=== PATIENT | male | born 1965 | race Hispanic/Latino ===

== ENCOUNTER 2023-01-09 17:31 | Inpatient (IN) | payer OTHER ==
[2023-01-09] MEDS ORDERED: Nitroglycerin 0.4 MG TAB 1 EACH ONE (18:11)
[2023-01-09 18:12] LABS: #Monocytes 0.4 thou/uL (0.11-0.59); %Basophils 0.3 % (0.0-1.0); %Eosinophils 0.4 % (0.0-10.0); %Lymphocytes 19.8 % (21.0-51.0); %Monocytes 6.4 % (0.0-10.0); %Neutrophils 72.7 % (42.0-75.0); Hematocrit 40.6 % (42.0-52.0); Hemoglobin 12.8 g/dL (14.0-18.0); Mean Corpuscular HGB CONC 31.5 g/dL (32.0-36.0); Mean Corpuscular Hemoglobin 28.3 pg (27.0-31.0); Mean Corpuscular Volume 89.6 fl (78.0-98.0); Mean Platelet Volume 14.4 fL (7.4-10.4); Platelet Count 126 10x3/uL (130-400); RBC Distribution Width 14.8 % (11.5-14.5); Red Blood Cell (RBC) Count 4.53 mill/uL (4.70-6.10); White Blood Cell (WBC) Count 6.9 10x3/uL (4.8-10.8)
[2023-01-09 18:35] LABS: ALT (SGPT) 14 U/L (8-55); AST (SGOT) 14 U/L (5-34); Albumin 4.6 g/dL (3.5-5.0); Alkaline Phosphatase 77 U/L (40-110); Anion Gap 16 mmol/L (10-20); BUN (Urea Nitrogen) 26 mg/dL (8.4-25.7); Bilirubin, Total 0.2 mg/dL (0.2-1.2); Calc. Creatinine Clearance 0 mL/min (70-130); Calcium 9.3 mg/dL (7.8-10.44); Carbon Dioxide 23 mmol/L (22-29); Chloride 104 mmol/L (98-107); Estimated GFR 48; Globulin 2.1 g/dL (2.4-3.5); Potassium 5.5 mmol/L (3.5-5.1); Protein, Total 6.7 g/dL (6.0-8.3); Sodium 137 mmol/L (136-145)
[2023-01-09 18:38] LABS: Glucose 580 mg/dL (70-105)
[2023-01-09 18:42] LABS: Troponin I 1.219 ng/mL (< 0.028)
[2023-01-09] MEDS ORDERED: Morphine 4 MG/ML VIAL ONE ×2 (19:32→20:17)
[2023-01-09] MEDS ORDERED: Insulin Regular 300 UNITS/3 ML VIAL ONE (20:32)
[2023-01-09] MEDS ORDERED: fentaNYL 50 mcg/mL 1 mL Vial ONE (20:54)
[2023-01-09] MEDS ORDERED: Lidocaine 1% (PF) 30 ML VIAL ONE (20:55)
[2023-01-09] MEDS ORDERED: Heparin 10,000 UNITS/ 10 ML VIAL ONE (20:55)
[2023-01-09] MEDS ORDERED: Nitroglycerin 50 MG/250 ML BOT 0 ML ONE (20:55)
[2023-01-09] MEDS ORDERED: Midazolam HCl 2 mg/2 ml Vial ONE (20:55)
[2023-01-09] MEDS ORDERED: Acetaminophen 325 MG TAB PO PRN (21:04)
[2023-01-09] MEDS ORDERED: Dextrose 5% in Water 1,000 ML IV PRN (21:07)
[2023-01-09] MEDS ORDERED: HumaLOG 300 UNITS/3 ML VIAL SC PRN (21:07)
[2023-01-09] MEDS ORDERED: Dextrose 50% Abboject 50 ML SYRINGE SLOW IVP PRN (21:07)
[2023-01-09] MEDS ORDERED: Glucagon 1 MG/ML KIT IM PRN (21:07)
[2023-01-09] MEDS ORDERED: Ondansetron PF 4 MG/2 ML Vial ONE (21:37)
[2023-01-09] MEDS ORDERED: Furosemide 40 MG/4 ML VIAL ONE (21:42)
[2023-01-09] MEDS ORDERED: Morphine 4 MG/ML VIAL SLOW IVP PRN (22:11)
[2023-01-09] MEDS ORDERED: Heparin 10,000 UNITS/ 10 ML VIAL SLOW IVP SCH (22:15)
[2023-01-09] MEDS ORDERED: Heparin 25,000 units/D5W 500 ML IVPB SCH (22:15)
[2023-01-09 23:03] LABS: Troponin I 3.374 ng/mL (< 0.028)
[2023-01-09 23:11] LABS: Anion Gap 15 mmol/L (10-20); BUN (Urea Nitrogen) 23 mg/dL (8.4-25.7); Calc. Creatinine Clearance 0 mL/min (70-130); Calcium 8.5 mg/dL (7.8-10.44); Carbon Dioxide 21 mmol/L (22-29); Chloride 111 mmol/L (98-107); Estimated GFR 58; Glucose 296 mg/dL (70-105); Potassium 3.9 mmol/L (3.5-5.1); Sodium 143 mmol/L (136-145)
[2023-01-09 23:20] VITALS: BMI 28.1
[2023-01-10 00:24] LABS: Troponin I 8.734 ng/mL (< 0.028)
[2023-01-10] MEDS: Ondansetron PF 4 MG/2 ML Vial IVP PRN ×3 (01:05→11:47)
[2023-01-10 02:00] LABS: Hematocrit 38.3 % (42.0-52.0); Mean Corpuscular HGB CONC 31.3 g/dL (32.0-36.0); Mean Corpuscular Hemoglobin 28.4 pg (27.0-31.0); Mean Corpuscular Volume 90.5 fl (78.0-98.0); Platelet Count 116 10x3/uL (130-400); Red Blood Cell (RBC) Count 4.23 mill/uL (4.70-6.10); White Blood Cell (WBC) Count 10.8 10x3/uL (4.8-10.8)
[2023-01-10 02:01] LABS: Delete Auto Diff?? YES; Manual Diff?? YES
[2023-01-10 02:28] LABS: Band 1 % (5-11); Burr Cells SLIGHT = 2-5 cells HPF (0-1); CellaVision Operator ID lab.abc; Large Platelets 7.8 % (0-5); Lymphocytes 12 % (21-51); Monocytes 5 % (0-10); Neutrophil 82 % (42-75); Platelet Adequacy Comment Platelets Decreased; Smudge Cells 8.8 %; Total Cell Count 102
[2023-01-10 02:37] LABS: Hemoglobin A1c 8.5 % (4.0-6.0)
[2023-01-10 02:38] LABS: Anion Gap 19 mmol/L (10-20); BUN (Urea Nitrogen) 26 mg/dL (8.4-25.7); Calc. Creatinine Clearance 57 mL/min (70-130); Calcium 8.6 mg/dL (7.8-10.44); Carbon Dioxide 17 mmol/L (22-29); Cardiac Risk 5.3 (Less than 4.5); Chloride 110 mmol/L (98-107); Cholesterol 149 mg/dl (< 200 Desired); Estimated GFR 47; Glucose 364 mg/dL (70-105); HDL Cholesterol 28 mg/dL (>60 Neg Risk); LDL Cholesterol, Calculated 83 mg/dL; Potassium 5.6 mmol/L (3.5-5.1); Sodium 140 mmol/L (136-145); Triglycerides 189 mg/dL (Less than 150)
[2023-01-10] MEDS ORDERED: NOREPINEPHRINE 8 MG/250 ML-D5W 250 ML ONE (02:44)
[2023-01-10 02:46] LABS: Troponin I 15.933 ng/mL (< 0.028)
[2023-01-10] MEDS ORDERED: Ondansetron PF 4 MG/2 ML Vial IVP SCH ×2 (03:00→07:45)
[2023-01-10] MEDS: NOREPINEPHRINE 8 MG/250 ML-D5W 250 ML IVPB SCH ×2 (03:05→11:09)
[2023-01-10] MEDS: HumaLOG 300 UNITS/3 ML VIAL SC PRN ×2 (04:18→06:37)
[2023-01-10] MEDS: DOBUTamine 500 mg/250 ml 250 ML IVPB SCH ×2 (04:42→11:09)
[2023-01-10] MEDS ORDERED: Sodium Bicarb 50 MEQ/50 ML VIAL ONE ×3 (04:47→07:06)
[2023-01-10] MEDS ORDERED: Sodium Bicarb 50 MEQ/50 ML VIAL IVP SCH ×2 (04:50→07:00)
[2023-01-10 05:15] LABS: Magnesium 1.9 mg/dL (1.6-2.6)
[2023-01-10] MEDS ORDERED: Sodium Chloride 0.9% 250 ML IV SCH (06:30)
[2023-01-10 06:45] LABS: Actual Bicarbonate (HCO3v) 16.4 mEq/L (22-28); Base Excess -11.3 mEq/L (-2.0 to +3.0); Calcium, Ionized (venous) 1.03 mmol/L (1.16-1.32); Chloride (VBG) 106 mmol/L (98-106); Hematocrit-VBG 38 % (42.0-52.0); Hemoglobin (Hb) 12.8 g/dL (13.1-17.2); Sodium 140 mmol/L (133-146)
[2023-01-10] MEDS ORDERED: INSULIN REGULAR IN 0.9 % NACL 100 UNITS/100 ML BAG IVPB SCH (07:00)
[2023-01-10] MEDS ORDERED: HUMULIN R 100 UNITS in Sodium Chloride 0.9% 100 ML IVPB SCH ×2 (07:00→15:00)
[2023-01-10] MEDS ORDERED: Sodium Chloride 0.9% 750 ML IV SCH (07:15)
[2023-01-10] MEDS ORDERED: Lactated Ringer's 250 ML IV SCH (07:15)
[2023-01-10] MEDS ORDERED: Vasopressin 20 UNITS, Admixture Fee 1 EACH in Sodium Chloride 0.9% 50 ML IV SCH (07:15)
[2023-01-10] MEDS ORDERED: HumaLOG 300 UNITS/3 ML VIAL SC PRN (07:16)
[2023-01-10] MEDS: Furosemide 40 MG/4 ML VIAL SLOW IVP SCH ×2 (07:23→14:00)
[2023-01-10] MEDS ORDERED: Sodium Chloride 0.9% 250 ML 250 ML IV SCH (07:30)
[2023-01-10] MEDS ORDERED: Heparin 10,000 UNITS/ 10 ML VIAL ONE (08:03)
[2023-01-10] MEDS ORDERED: Nitroglycerin 50 MG/250 ML BOT 0 ML ONE (08:04)
[2023-01-10] MEDS ORDERED: Atropine Sulfate 1 mg/10 ml Syringe ONE (08:04)
[2023-01-10] MEDS ORDERED: EPINEPHrine 1 MG/10 ML Abboject SYRINGE ONE (08:04)
[2023-01-10] MEDS ORDERED: Norepinephrine 4 MG/4 ML VIAL ONE (09:00)
[2023-01-10] MEDS ORDERED: Aspirin 81 mg Enteric Coated Tablet PO SCH (09:00)
[2023-01-10 09:01] LABS: PTT 158.3 sec (22.9-36.1)
[2023-01-10] MEDS ORDERED: Electrolyte Replacement Protocol 1 EACH FS PRN (09:30)
[2023-01-10] MEDS ORDERED: Tirofiban-0.9% Sodium Chloride 250 ML IVPB SCH (09:30)
[2023-01-10] MEDS ORDERED: Tirofiban-0.9% Sodium Chloride 250 ML ONE (09:31)
[2023-01-10 09:55] LABS: pH (venous) 7.193 (7.32-7.43)
[2023-01-10] MEDS ORDERED: Heparin 10,000 UNITS/ 10 ML VIAL SLOW IVP SCH (10:00)
[2023-01-10] MEDS ORDERED: Sodium Chloride 0.9% 500 ML IV SCH (10:00)
[2023-01-10] MEDS ORDERED: Heparin 25,000 units/D5W 500 ML IV SCH (10:00)
[2023-01-10] MEDS ORDERED: Sodium Bicarbonate 25 MEQ in Dextrose 5% in Water 1,000 ML FS SCH (10:00)
[2023-01-10] MEDS: Sodium Chloride 0.9% 1,000 ML IV SCH ×2 (10:29→15:22)
[2023-01-10 10:54] VITALS: TEMP 96
[2023-01-10 11:32] LABS: Anion Gap 26 mmol/L (10-20); BUN (Urea Nitrogen) 30 mg/dL (8.4-25.7); Calc. Creatinine Clearance 41 mL/min (70-130); Carbon Dioxide 14 mmol/L (22-29); Chloride 104 mmol/L (98-107); Estimated GFR 32; Potassium 4.4 mmol/L (3.5-5.1); Sodium 140 mmol/L (136-145)
[2023-01-10 11:45] LABS: Glucose 571 mg/dL (70-105)
[2023-01-10] MEDS ORDERED: Magnesium 2 GM/50 ML(in water) 2 GM in Premix Bag 1 BAG IVPB SCH (12:00)
[2023-01-10] MEDS ORDERED: Insulin Regular 300 UNITS/3 ML VIAL IVP SCH (12:15)
[2023-01-10] MEDS ORDERED: PROMETHAZINE HCL IVPB PRN (14:09)
[2023-01-10] MEDS ORDERED: SODIUM CHLORIDE 0.9% IVPB PRN (14:09)
[2023-01-10] MEDS ORDERED: Metoclopramide HCl 10 MG/2 ML VIAL IVP PRN (14:42)
[2023-01-10] MEDS ORDERED: Ondansetron PF 4 MG/2 ML Vial IVP PRN (14:45)
[2023-01-10 14:56] LABS: Anion Gap 18 mmol/L (10-20); BUN (Urea Nitrogen) 28 mg/dL (8.4-25.7); Calc. Creatinine Clearance 42 mL/min (70-130); Calcium 8.3 mg/dL (7.8-10.44); Carbon Dioxide 20 mmol/L (22-29); Chloride 107 mmol/L (98-107); Estimated GFR 33; Glucose 398 mg/dL (70-105); Potassium 3.9 mmol/L (3.5-5.1); Sodium 141 mmol/L (136-145)
[2023-01-10] MEDS ORDERED: Dexamethasone 10 MG/ML VIAL SLOW IVP SCH (15:00)
[2023-01-10] MEDS ORDERED: Atorvastatin Calcium 40 MG TAB PO SCH (21:00)
[2023-01-11] MEDS ORDERED: Aspirin Chewable 81 MG TAB PO SCH (09:00)
== END 2023-01-10 19:30 | disposition short-term general hospital (02) | DRG 215 ==
LOC: ERS 17:31 → IMCU/EMU 20:37 → CCU 01-10 02:57
PROVIDERS: ADMIT Internal Medicine; ATTEND Internal Medicine
PROC: 4A023N7 Measurement of Cardiac Sampling and Pressure, Left Heart, Percutaneous Approach (ICD-10-PCS; principal; 2023-01-10)
PROC: B2151ZZ Fluoroscopy of Left Heart using Low Osmolar Contrast (ICD-10-PCS; 2023-01-10)
PROC: B2111ZZ Fluoroscopy of Multiple Coronary Arteries using Low Osmolar Contrast (ICD-10-PCS; 2023-01-10)
PROC: 06HY33Z Insertion of Infusion Device into Lower Vein, Percutaneous Approach (ICD-10-PCS; 2023-01-10)
PROC: 4A043R1 Measurement of Venous Saturation, Peripheral, Percutaneous Approach (ICD-10-PCS; 2023-01-10)
PROC: 3E033XZ Introduction of Vasopressor into Peripheral Vein, Percutaneous Approach (ICD-10-PCS; 2023-01-10)
PROC: 02HA3RZ Insertion of Short-term External Heart Assist System into Heart, Percutaneous Approach (ICD-10-PCS; 2023-01-10)
PROC: 5A0221D Assistance with Cardiac Output using Impeller Pump, Continuous (ICD-10-PCS; 2023-01-10)
PROC: 027135Z Dilation of Coronary Artery, Two Arteries with Two Drug-eluting Intraluminal Devices, Percutaneous Approach (ICD-10-PCS; 2023-01-10)
PROC: 5A09357 Assistance with Respiratory Ventilation, Less than 24 Consecutive Hours, Continuous Positive Airway Pressure (ICD-10-PCS; 2023-01-10)
DX: I11.0 Hypertensive heart disease with heart failure (principal); I21.4 Non-ST elevation (NSTEMI) myocardial infarction; I50.23 Acute on chronic systolic (congestive) heart failure; J96.01 Acute respiratory failure with hypoxia; R57.0 Cardiogenic shock; N17.9 Acute kidney failure, unspecified; E87.20 Acidosis, unspecified; Z51.5 Encounter for palliative care; Z66 Do not resuscitate; I25.10 Atherosclerotic heart disease of native coronary artery without angina pectoris; I44.7 Left bundle-branch block, unspecified; F10.90 Alcohol use, unspecified, uncomplicated; E87.5 Hyperkalemia; E11.65 Type 2 diabetes mellitus with hyperglycemia; D69.6 Thrombocytopenia, unspecified; I42.8 Other cardiomyopathies; I95.9 Hypotension, unspecified; D64.9 Anemia, unspecified; Z79.899 Other long term (current) drug therapy; Z79.890 Hormone replacement therapy; Z89.512 Acquired absence of left leg below knee; Z89.201 Acquired absence of right upper limb, unspecified level; Z82.49 Family history of ischemic heart disease and other diseases of the circulatory system
CPT/HCPCS: 33990; 36415; 36416; 71045; 80048; 80053; 80061; 82010; 82805; 83036; 83735; 83880; 84484; 85025; 85347; 85379; 85730; 92928; 92929; 93005; 93010; 93306; 93458; 94660; 96361; 96374; 96375; 96376; C1725; C1769; C1874; C1887; C9600; C9601; J0171; J0461; J1100; J1250; J1644; J1815; J1940; J2001; J2250; J2270; J2405; J2765; J3010; J3246; J3475; J7050; J7070